=== PATIENT | male | born 1965 | race Caucasian/White ===

== ENCOUNTER 2016-09-12 01:06 | Emergency (ER) | payer OTHER ==
[~2016-09-12 01:06] MED LIST: ALBUTEROL17 GM INH; ASPIRIN81 M2 PO; ASPIRIN81 MG PO; BACTRIM DS TABL1 TA1 PO; BENTYL10 MG PO; BENTYL20 MG PO; CLEOCIN HCL300 M1 PO; CYMBALTA PO; CYMBALTA30 MG PO; DILAUDID2 MG PO; DULOXETINE HCL60 MG PO; FLEXERIL PO; FLEXERIL10 MG PO; HCTZ PO; HYDROCHLOROTHIA25 MG PO; INDERAL LA; INDERAL40 MG PO; K-DUR20 ME2; LEVAQUIN750 MG PO; MECLIZINE HCL25 M2 PO; MEDROL DOSEPAK4 MG PO; MOTION RELIEF25 MG PO; MOTION SICKNESS25 M4 PO; NEURONTIN PO; NORVASC PO; OXYCODONE15 MG PO; OXYCONTIN PO; PERCOCET 10/3251 TAB PO; PERCOCET PO; PHENERGAN PO; PHENERGAN25 M1; PHENERGAN25 M1 PO; PHENERGAN25 MG PO; POTASSIUM CHLO10 ME1 PO; PREDNISONE PO; PRILOSEC PO; PRILOSEC40 MG PO; PROPRANOLOL PO; ROBITUSSIN A-C S5 ML PO; SEROQUEL400 MG PO; ULTRAM PO; UNKNOWN BP MED; VICODIN 5/500 T1 TAB PO; XARELTO20 MG PO; ZANAFLEX PO; ZITHROMAX PO; ZOFRAN PO
== END 2016-09-12 01:25 | disposition home or self-care (01) ==
LOC: SED 01:06
DX: M54.12 Radiculopathy, cervical region (principal); F17.200 Nicotine dependence, unspecified, uncomplicated; Z88.0 Allergy status to penicillin; Z88.5 Allergy status to narcotic agent; Z88.8 Allergy status to other drugs, medicaments and biological substances; Z88.2 Allergy status to sulfonamides; Z79.899 Other long term (current) drug therapy
CPT/HCPCS: 96372; 99283; J1040

== ENCOUNTER 2016-10-26 05:20 | Emergency (ER) | payer OTHER ==
--- NOTE | ~2016-10-26 | CR2 ---
[facility] A Service of [facility] RADIOLOGY TEXT RESULTS PATIENT: MAGO FALLON LOCATION: SED : 69 UNIT #: [id number] AGE: [address]: Liam Rodriguez MD SEX: M ORDER DR: [id number] [place] [address] [id number] E MR#: [id number] Acc #: [id number] NAME: MAGO FALLON. : 1965 SEX: M STUDY DATE/TIME: 10/26/2016 05:17 UNIT: SED ROOM: STUDY DESCRIPTION: CR Abdomen Acute Series Attending Physician: Liam Rodriguez M.D. Ordering Physician: Ted Quintanilla M.D. Primary Care Physician: Andrea Tolentino M.D. MEDICAL IMAGING REPORT This report is preliminary unless electronic signature is present. EXAM Acute abdomen series 10/27/2016 at 05:17 INDICATION Right lower quadrant pain and shortness of air that started about 1 hour ago. FINDINGS Upright view of the chest was obtained in addition to flat and upright views of the abdomen. Comparison made with chest x-ray from 06/17/2014. Cardiac and mediastinal contours are normal. The lungs are clear. No pneumothorax. Bowel gas pattern is normal. No obstruction or free air is seen. Patient has a left hip arthroplasty. Calcifications in the left hemipelvis are likely phleboliths. IMPRESSION Negative acute abdominal series. Dictated by... Domenico Meraz Jr., M.D. THIS IS AN ELECTRONICALLY VERIFIED REPORT Domenico Meraz Jr., M.D. at 10/29/2016 7:24 AM MARY BETH/avtar TD: 10/26/2016 09:15 JOB #: [id number] MEDICAL IMAGING REPORT [facility] A Service [facility] RADIOLOGY TEXT RESULTS PATIENT: MAGO FALLON LOCATION: SED : 69 UNIT #: [id number] AGE: [address]: Liam Rodriguez MD SEX: M ORDER DR: Page 1 of 1
--- NOTE | ~2016-10-26 | CT2 ---
[facility] A Service of [facility] RADIOLOGY TEXT RESULTS PATIENT: MAGO FALLON LOCATION: SED : [birth year] UNIT #: [id number] AGE: [address]: Liam Rodriguez MD SEX: M ORDER DR: [id number] [place] [id number] E MR#: [id number] Acc #: [id number] NAME: MAGO FALLON. : 1965 SEX: M STUDY DATE/TIME: 10/26/2016 6:54 UNIT: SED ROOM: STUDY DESCRIPTION: CT Abd and Pelv W Cont Attending Physician: Liam Rodriguez M.D. Ordering Physician: Ted Quintanilla M.D. Primary Care Physician: Andrea Tolentino M.D. MEDICAL IMAGING REPORT This report is preliminary unless electronic signature is present. EXAM CT abdomen and pelvis with contrast 10/26/2016 HISTORY Right lower quadrant pain and right groin pain for 1 hour prior to arrival. COMPARISON CT abdomen and pelvis without contrast 06/04/2014. Acute abdominal series 10/26/2016 at 05:17. PROCEDURE 5 mm axial images from the lung bases through the lesser trochanters after intravenous and enteric contrast administration. Sagittal and coronal reformatted images were obtained. This CT examination was performed with one or more of the following radiation dose reduction techniques: automatic exposure control, adjustment of mA and/or kV according to patient size, and iterative reconstruction. FINDINGS ABDOMEN: The liver is enlarged measuring 22 cm craniocaudally and is markedly and diffusely steatotic. The gallbladder, spleen, pancreas, adrenals are within normal limits. There is mild bilateral renal cortical scarring. Benign calcified granuloma is present in the right lower lobe. The appendix is normal. No evidence of active bowel inflammatory change. No evidence of high-grade large or small bowel obstruction. No free air or free fluid. No pathologic adenopathy is identified. Surgical changes of exv-ky-[id number] abdominal central small bowel loops. PELVIS: Urinary bladder, prostate and rectum are normal. Left hip replacement changes obscure several of the images. No acute osseous abnormalities are identified. [facility] A Service of [facility] RADIOLOGY TEXT RESULTS PATIENT: MAGO FALLON LOCATION: SED : 69 UNIT #: [id number] AGE: [address]: Liam Rodriguez MD SEX: M ORDER DR: IMPRESSION 1. No acute findings within the abdomen or pelvis. There is no CT explanation for the patient's abdominal pain. 2. The appendix is normal. 3. Hepatomegaly with diffuse hepatic steatosis. 4. Left hip replacement. 5. Surgical changes of central hin-qs-koxjj abdominal small bowel. No evidence of high-grade bowel obstruction. Dictated by... Tayla King M.D. THIS IS AN ELECTRONICALLY VERIFIED REPORT Tayla King M.D. at 10/29/2016 8:36 AM JENY/avtar TD: 10/26/2016 09:54 JOB #: [id number] MEDICAL IMAGING REPORT Page 1 of 1
[2016-10-26 05:01] LABS: BASOPHIL% 0.4 % (0-2.5); EOSINOPHIL# 0.1 X10e3 (0-0.7); EOSINOPHIL% 1.5 % (0.0-7.0); HEMATOCRIT 39.3 % (38.0-50.0); HEMOGLOBIN 12.9 gm/dL (13.0-16.0); LYMPHOCYTE# 3.3 X10e3 (1.0-3.5); LYMPHOCYTE% 32.7 % (17.0-45.0); MEAN CELL VOLUME 81.7 FL (83-96); MEAN CORPUSCULAR HEMOGLOBIN 26.8 PG (28-34); MEAN CORPUSCULAR HGB CONC 32.8 g/dL (30-36); MEAN PLATELET VOLUME 7.3 FL (6.5-11.5); MONOCYTE# 1.1 X10e3 (0-1.0); MONOCYTE% 10.8 % (3.0-12.0); NEUTROPHIL# 5.5 X10e3 (1.5-7.1); NEUTROPHIL% 54.6 % (40-75); PLATELET COUNT 275 X10e3 (140-420); RED BLOOD COUNT 4.81 X10e (3.90-5.60); RED CELL DISTRIBUTION WIDTH 14.7 % (11.0-15.5)
[2016-10-26 05:05] LABS: DIFF IND NO
[2016-10-26 05:06] LABS: URINE SOURCE CLEAN CATCH
[2016-10-26 05:08] LABS: URINE APPEARANCE CLEAR; URINE BILIRUBIN NEG (NEG); URINE BLOOD NEG (NEG); URINE COLOR YELLOW; URINE GLUCOSE NEG (NORM); URINE KETONE NEG (NEG); URINE LEUKOCYTE ESTERASE NEG (NEG); URINE NITRATE NEG (NEG); URINE PROTEIN 1+ (NEG); URINE SPECIFIC GRAVITY >=1.030 (1.003-1.035); URINE UROBILINOGEN 0.2 MG/DL (NORM)
[2016-10-26 05:12] LABS: ALBUMIN SERUM 4.8 g/dL (3.5-5.0); BILIRUBIN, DIRECT 0.1 mg/dL (0.0-0.2); BILIRUBIN,INDIRECT 0.4 mg/dL (0.0-0.9); BILIRUBIN,TOTAL 0.5 mg/dL (0.2-2.0); BUN/CREATININE RATIO 16.66; CALCIUM SERUM 9.4 mg/dL (8.4-10.2); CREATININE SERUM 1.2 mg/dL (0.6-1.4); GLOM FILT RATE Estimated 71.1 mL/min (>60); POTASSIUM 3.2 mmol/L (3.5-5.1); PROTEIN TOTAL SERUM 8.2 g/dL (6.0-8.3)
[2016-10-26 05:13] LABS: MICRO INDICATED? YES
[2016-10-26 05:15] LABS: CULTURE INDICATED? NO; URINE BACTERIA NEG (NEG); URINE MUCUS PRESENT; URINE RBC 0-2 /[HPF] (0-2); URINE SQUAMOUS EPITHELIAL CELL OCCAS /[HPF]
== END 2016-10-26 08:30 | disposition home or self-care (01) ==
LOC: SED 05:20
PROVIDERS: Emergency Medicine
DX: S39.011A Strain of muscle, fascia and tendon of abdomen, initial encounter (principal); K21.9 Gastro-esophageal reflux disease without esophagitis; I10 Essential (primary) hypertension; Z88.8 Allergy status to other drugs, medicaments and biological substances; Z79.899 Other long term (current) drug therapy; X58.XXXA Exposure to other specified factors, initial encounter; Y92.9 Unspecified place or not applicable
CPT/HCPCS: 36415; 74022; 74177; 80048; 80076; 81003; 82150; 83690; 85025; 96374; 96375; 99284; J1170; J2405; Q9967